=== PATIENT | female | born 1950 | race Hispanic/Latino ===

== ENCOUNTER 2017-05-09 22:22 | Emergency (ER) | payer MEDICARE ==
[~2017-05-09] VITALS: Ht 160 cm; Wt 73.5 kg
[2017-05-10] MEDS ORDERED: DIPHTH/TETANUS/ACEL. PERTUSSIS 0.5 ML SYR IM ONE
== END 2017-05-10 01:35 | disposition home or self-care (01) ==
LOC: FSED 22:22
DX: R58 Hemorrhage, not elsewhere classified (principal); I10 Essential (primary) hypertension; J44.9 Chronic obstructive pulmonary disease, unspecified; E78.5 Hyperlipidemia, unspecified; F41.9 Anxiety disorder, unspecified
CPT/HCPCS: 85610; 99283

== ENCOUNTER 2022-07-05 10:14 | Inpatient (IN) | payer MEDICARE ==
[~2022-07-05] VITALS: Ht 157.5 cm; Wt 63.0 kg
[2022-07-05] VITALS (31 sets, daily range): BP systolic 92–144; BP diastolic 44–111; PULSE 39–90; RESP 12–30; TEMP 96.9–98.7; O2SAT 80–100
[2022-07-05] MEDS ORDERED: ALBUTEROL SULF 0.083% NEB SOLN 3 ML NEB NEB STA (11:56)
[2022-07-05] MEDS ORDERED: DEXTROSE 50% SYRINGE 50 ML IV ONE ×2 (12:00→13:05)
[2022-07-05] MEDS ORDERED: INSULIN REGULAR, HUMAN 100 UNIT/1 ML IV ONE (12:00)
[2022-07-05] MEDS ORDERED: IOPAMIDOL 370 MG/ML 100 ML INFUS..BTL INJ ONE (12:13)
[2022-07-05] MEDS ORDERED: SODIUM CHLORIDE FLUSH 10 ML SYR INJ PRN (12:30)
[2022-07-05] MEDS ORDERED: FUROSEMIDE INJ 10 MG/ML 2 ML VIAL IV ONE (12:45)
[2022-07-05] MEDS ORDERED: ALBUTEROL SULF 0.083% NEB SOLN 3 ML NEB ONE (13:04)
[2022-07-05] MEDS ORDERED: FUROSEMIDE INJ 10 MG/ML 4 ML VIAL ONE (13:04)
[2022-07-05] MEDS ORDERED: CALCIUM GLUC 1 G/50 ML NACL 50 ML IV ONE (13:05)
[2022-07-05] MEDS ORDERED: MULTIVITAMINS INJECTION ONE (13:06)
[2022-07-05] MEDS ORDERED: ONDANSETRON HCL INJ 2MG/ML 2ML 2 MG/ML VIAL IV PRN (14:00)
[2022-07-05] MEDS ORDERED: ACETAMINOPHEN 325 MG TAB PO PRN (14:00)
[2022-07-05] MEDS ORDERED: LIDOCAINE 4% PATCH TP PRN (14:00)
[2022-07-05] MEDS ORDERED: DOCUSATE SODIUM 100 MG CAP PO PRN (14:00)
[2022-07-05] MEDS ORDERED: POTASSIUM CHLORIDE 20 MEQ TAB CR PO PRN (14:00)
[2022-07-05] MEDS ORDERED: ALBUTEROL/IPRATROPIUM 3 ML NEB NEB PRN (14:00)
[2022-07-05] MEDS ORDERED: SIMETHICONE 80 MG CHEW PO PRN (14:00)
[2022-07-05] MEDS ORDERED: HYDRALAZINE HCL 20 MG/ML VIAL IV PRN (14:00)
[2022-07-05] MEDS ORDERED: BENZONATATE 100 MG CAP PO PRN (14:00)
[2022-07-05] MEDS ORDERED: DIPHENHYDRAMINE HCL 25 MG CAP PO PRN (14:00)
[2022-07-05] MEDS ORDERED: DEXTROSE 50% SYRINGE 50 ML IV PRN (14:00)
[2022-07-05] MEDS: FUROSEMIDE INJ 10 MG/ML 2 ML VIAL IV SCH ×2 (15:49→21:27)
[2022-07-05] MEDS: ENOXAPARIN SOD INJ 40 MG/0.4 ML SYR SC SCH (16:39)
[2022-07-05] MEDS ORDERED: FUROSEMIDE INJ 10 MG/ML 4 ML VIAL IV SCH (17:00)
[2022-07-05 17:17] LABS: ANION GAP 15.2 mmol/L (8-16); CALCIUM 8.7 mg/dL (8.4-10.2); CREATININE, SERUM 2.09 mg/dL (0.57-1.11)
[2022-07-05 17:18] LABS: POTASSIUM 5.2 mmol/L (3.5-5.1)
[2022-07-05] MEDS ORDERED: FOLIC ACID0.4 MG PO (17:33)
[2022-07-05] MEDS ORDERED: CLONIDINE HCL0.1 MG PO (17:33)
[2022-07-05] MEDS ORDERED: IBUPROFEN600 MG PO (17:33)
[2022-07-05] MEDS ORDERED: HYDROCHLOROTHIA25 MG PO (17:33)
[2022-07-05] MEDS ORDERED: ATORVASTATIN CA10 MG PO (17:33)
[2022-07-05] MEDS ORDERED: ACETAMINOPHEN325 M1 PO (17:33)
[2022-07-05] MEDS ORDERED: ASPIRIN EC81 MG PO (17:33)
[2022-07-05] MEDS ORDERED: SYMBICORT 80-10.2 GM INH (17:33)
[2022-07-05] MEDS ORDERED: LEVALBUTEROL TA15 GM PO (17:33)
[2022-07-05] MEDS ORDERED: ENOXAPARIN60 MG/0.6 SQ (17:33)
[2022-07-05] MEDS ORDERED: FUROSEMIDE40 MG PO (17:33)
[2022-07-05 18:20] LABS: CREATINE KINASE MB 2.4 ng/mL (0-5.0)
[2022-07-05] MEDS ORDERED: MELATONIN 5 MG TABLET PO PRN (21:00)
[2022-07-06] VITALS (22 sets, daily range): BP systolic 76–161; BP diastolic 49–121; PULSE 45–65; RESP 20–25; TEMP 97.8–99; O2SAT 97–100
[2022-07-06] MEDS: FUROSEMIDE INJ 10 MG/ML 2 ML VIAL IV SCH ×3 (05:24→21:12)
[2022-07-06 07:18] LABS: INR 2.05; PROTHROMBIN TIME 23.6 seconds (11.9-14.5)
[2022-07-06 07:29] LABS: ALBUMIN 3.7 g/dL (3.5-5.0); ALBUMIN/GLOBULIN RATIO 1.2 (0.8-2.0); ANION GAP 20.3 mmol/L (8-16); CALCIUM 9.1 mg/dL (8.4-10.2); CREATININE, SERUM 2.27 mg/dL (0.57-1.11); POTASSIUM 4.3 mmol/L (3.5-5.1)
[2022-07-06 07:44] LABS: BASOPHILS # (AUTO) 0.1 (0.0-0.1); BASOPHILS % 1.7 % (0.0-1.0); EOSINOPHILS # (AUTO) 0.2 (0.0-0.4); EOSINOPHILS % 2.7 % (0.0-6.0); HEMATOCRIT 30.4 % (34.2-44.1); HEMOGLOBIN 9.2 g/dL (12.0-16.0); LYMPHOCYTES # (AUTO) 0.7 (1.0-3.2); LYMPHOCYTES % 9.3 % (18.0-39.1); MEAN CORPUSCULAR HEMOGLOBIN 31.9 pg (28-32); MEAN CORPUSCULAR HGB CONC 30.3 g/dL (31-35); MEAN CORPUSCULAR VOLUME 105.6 fL (81-99); MONOCYTES # (AUTO) 0.6 (0.2-0.8); MONOCYTES % 7.9 % (4.4-11.3); NEUTROPHILS % 77.9 % (38.7-80.0); PLATELET COUNT 230 x10e3/uL (140-360); RED BLOOD COUNT 2.88 x10e6/uL (3.6-5.1); RED CELL DISTRIBUTION WIDTH 28.1 % (11.7-14.4)
[2022-07-06 08:19] LABS: THYROID STIMULATING HORMONE 2.666 uIU/mL (0.350-4.940)
[2022-07-06 08:34] LABS: CREATINE KINASE MB 2.7 ng/mL (0-5.0)
[2022-07-06] MEDS: PANTOPRAZOLE SOD 40 MG TABEC PO SCH (08:46)
[2022-07-06 10:42] LABS: ANISOCYTOSIS MODERATE; PLATELET ESTIMATE ADEQUATE; PLATELET MORPHOLOGY COMMENT NORMAL
[2022-07-06 10:48] LABS: POLYCHROMASIA FEW
[2022-07-06] MEDS: ASPIRIN 81 MG ENTERIC COATED PO SCH (12:36)
[2022-07-06 14:51] LABS: CREATINE KINASE MB 2.9 ng/mL (0-5.0)
[2022-07-06] MEDS ORDERED: WARFARIN SOD 2 MG TAB PO SCH (17:00)
[2022-07-06] MEDS ORDERED: WARFARIN SOD 2.5 MG TAB PO SCH (17:00)
[2022-07-06] MEDS: ENOXAPARIN SOD INJ 40 MG/0.4 ML SYR SC SCH (17:01)
[2022-07-06] MEDS ORDERED: TRAZODONE HCL 50 MG TAB PO PRN (21:00)
[2022-07-06] MEDS ORDERED: ATORVASTATIN 10 MG TAB PO SCH (21:00)
[2022-07-07] VITALS (11 sets, daily range): BP systolic 46–155; BP diastolic 18–128; PULSE 58–65; RESP 20–27; TEMP 98–98.4; O2SAT 98–100
[2022-07-07 05:51] LABS: INR 1.84; PROTHROMBIN TIME 21.7 seconds (11.9-14.5)
[2022-07-07 06:18] LABS: ALBUMIN 3.4 g/dL (3.5-5.0); ALBUMIN/GLOBULIN RATIO 1.2 (0.8-2.0); ANION GAP 17.5 mmol/L (8-16); CALCIUM 8.8 mg/dL (8.4-10.2); CREATININE, SERUM 2.2 mg/dL (0.57-1.11); POTASSIUM 3.5 mmol/L (3.5-5.1)
[2022-07-07 06:24] LABS: BASOPHILS # (AUTO) 0.1 (0.0-0.1); BASOPHILS % 1.4 % (0.0-1.0); EOSINOPHILS # (AUTO) 0.2 (0.0-0.4); EOSINOPHILS % 2.2 % (0.0-6.0); HEMATOCRIT 27.8 % (34.2-44.1); HEMOGLOBIN 8.8 g/dL (12.0-16.0); LYMPHOCYTES # (AUTO) 0.7 (1.0-3.2); LYMPHOCYTES % 7.5 % (18.0-39.1); MEAN CORPUSCULAR HEMOGLOBIN 32.4 pg (28-32); MEAN CORPUSCULAR HGB CONC 31.7 g/dL (31-35); MEAN CORPUSCULAR VOLUME 102.2 fL (81-99); MONOCYTES # (AUTO) 0.9 (0.2-0.8); NEUTROPHILS # (AUTO) 6.8 (2.1-6.9); NEUTROPHILS % 78.3 % (38.7-80.0); PLATELET COUNT 163 x10e3/uL (140-360); RED BLOOD COUNT 2.72 x10e6/uL (3.6-5.1); RED CELL DISTRIBUTION WIDTH 29.9 % (11.7-14.4)
[2022-07-07] MEDS: FUROSEMIDE INJ 10 MG/ML 2 ML VIAL IV SCH (06:39)
[2022-07-07 07:23] LABS: ANISOCYTOSIS MARKED; EOSINOPHILS % (MANUAL) 3 % (0-7); LYMPHOCYTES % (MANUAL) 7 % (19-48); MONOCYTES % (MANUAL) 5 % (3.4-9.0); NEUTROPHILS % (MANUAL) 82 % (40-74); NUCLEATED RED BLOOD CELLS 1; PLATELET ESTIMATE ADEQUATE; PLATELET MORPHOLOGY COMMENT NORMAL; POLYCHROMASIA FEW; RBC MORPHOLOGY COMMENT ABNORMAL
[2022-07-07 07:24] LABS: SCHISTOCYTES FEW
[2022-07-07] MEDS: PANTOPRAZOLE SOD 40 MG TABEC PO SCH (08:48)
[2022-07-07] MEDS: ASPIRIN 81 MG ENTERIC COATED PO SCH (08:49)
[2022-07-07] MEDS ORDERED: ASPIRIN 81 MG ENTERIC COATED PO SCH (09:00)
[2022-07-07] MEDS ORDERED: Warfarin Sod PO (11:28)
[2022-07-07] MEDS ORDERED: FUROSEMIDE INJ 10 MG/ML 4 ML VIAL IV ONE (11:30)
[2022-07-07] MEDS ORDERED: WARFARIN SOD 5 MG TAB PO SCH (17:00)
== END 2022-07-07 12:45 | disposition home or self-care (01) | DRG 291 ==
LOC: FSED 10:29 → ERHOLD 12:25 → ICU 14:47
PROVIDERS: ADMIT Internal Medicine; ATTEND Internal Medicine
DX: I13.0 Hypertensive heart and chronic kidney disease with heart failure and stage 1 through stage 4 chronic kidney disease, or unspecified chronic kidney disease (principal); I50.43 Acute on chronic combined systolic (congestive) and diastolic (congestive) heart failure; N18.4 Chronic kidney disease, stage 4 (severe); E87.20 Acidosis, unspecified; E87.5 Hyperkalemia; D63.1 Anemia in chronic kidney disease; J44.9 Chronic obstructive pulmonary disease, unspecified; E78.5 Hyperlipidemia, unspecified; I73.9 Peripheral vascular disease, unspecified; F32.A Depression, unspecified; Z20.822 Contact with and (suspected) exposure to COVID-19; Z95.2 Presence of prosthetic heart valve; Z95.810 Presence of automatic (implantable) cardiac defibrillator; Z90.49 Acquired absence of other specified parts of digestive tract; Z79.01 Long term (current) use of anticoagulants; Z79.82 Long term (current) use of aspirin; Z79.51 Long term (current) use of inhaled steroids; Z79.899 Other long term (current) drug therapy; Z88.1 Allergy status to other antibiotic agents; Z88.0 Allergy status to penicillin; Z82.49 Family history of ischemic heart disease and other diseases of the circulatory system; Z83.3 Family history of diabetes mellitus
CPT/HCPCS: 36415; 71045; 71046; 80048; 80053; 80061; 81003; 82550; 82553; 83036; 83735; 83880; 84100; 84443; 84484; 85025; 85610; 93005; 94799; 96374; 96375; 99284; J0612; J1650; J1940; J7799; Q9967